=== PATIENT | male | born 1965 | race Caucasian/White ===

== ENCOUNTER 2023-09-04 10:54 | Emergency (ER) | payer OTHER, SELFPAY ==
[2023-09-04 11:08] VITALS: BP 176/100
[2023-09-04 11:24] VITALS: BP 160/103
[2023-09-04 11:26] VITALS: BP 160/103
[2023-09-04 12:00] VITALS: BP 168/93
--- NOTE | 2023-09-04 12:24 | EDRN ---
Pt called out to me in a very loud voice while I was charting on another pt. Pt has been speaking loudly on phone w/ door open. Pt requested to speak to charge nurse about people staring at him. I closed the curtain for his privacy and the door as
he was speaking over phone very loudly then called charge nurse and informed her of his request.
--- NOTE | 2023-09-04 12:26 | EDRN ---
Primo RIVERA just entered pt's room to see him.
[2023-09-04 12:53] LABS: % Basophils 0.4 % (0-2); % Immature Granulocytes 0.5 % (0-0.5); % Lymphocytes 20.3 % (20.5-51.1); % Monocytes 6.3 % (1.7-9.3); % Neutrophils 71.5 % (42.2-75.2); Absolute Eosinophils 0.1 10^3/uL (0-0.7); Absolute Lymphocytes 1.6 10^3/uL (1.2-3.4); Absolute Monocytes 0.5 10^3/uL (0.1-0.6); Absolute Neutrophils 5.7 10^3/uL (1.4-6.5); Hematocrit 40.2 % (39.0-52.0); Hemoglobin 13.9 g/dL (13.0-18.0); Mean Corp Hgb Conc. 34.6 g/dL (33.0-37.0); Mean Corpuscular Hgb 29.3 pg (27.0-31.0); Mean Corpuscular Volume 84.6 fL (80.0-94.0); Mean Platelet Volume 9.8 fL (7.4-10.4); Nucleated Red Blood Cells % 0 % (-); Platelet Count 204 10^3/uL (130-400); Red Blood Cell Count 4.75 10^6/uL (4.70-6.10); Red Cell Dist. Width 13.7 % (11.5-14.5); White Blood Cell Count 7.9 10^3/uL (4.8-10.8)
[2023-09-04 13:00] VITALS: BP 154/86
[2023-09-04 13:05] LABS: ALT (SGPT) 30 U/L (0-50); AST (SGOT) 24 U/L (17-59); Albumin 4.2 g/dl (3.5-5.0); Alkaline Phosphatase 119 U/L (38-126); Blood Urea Nitrogen 21 mg/dl (9-20); Calcium 9.2 mg/dl (8.4-10.2); Carbon Dioxide 31 mmol/L (22-30); Chloride 105 mmol/L (98-107); Glucose 99 mg/dl (70-99); Potassium 3.8 mmol/L (3.5-5.1); Sodium 140 mmol/L (135-145); Total Bilirubin 0.9 mg/dl (0.2-1.3); Total Protein 7.6 g/dl (6.3-8.2); eGFR > 60.00
[2023-09-04 13:34] LABS: Troponin I < 0.012 ng/ml
--- NOTE | 2023-09-04 15:02 | ED.GENMED ---
History of Present Illness
General
Chief Complaint: Headache
Source: patient
Exam Limitations: none
Time Seen by Provider: 09/04/23 11:24
Nursing documentation reviewed up to this point in time: agreed with
Travel History
Have you had any contact with someone who has COVID-19?: No
Do you have any symptoms of coronavirus? Fever > 100 degrees, chills, cough, shortness of breath, sore throat, loss of taste or smell, muscle aches, or headache?: No
History of Present Illness
History of Present Illness:
58-year-old male with no known medical conditions he denies any chronic medical conditions presenting to the emergency department today with concerns of an abnormal EKG that was evaluated in urgent care prior to arrival. He claims that he otherwise
went to the urgent care today because he had some discomfort to his left ear. He was offered antibiotics for an outer ear infection at the urgent care but he declined. He denies any chest pain shortness of breath or any additional symptoms
otherwise
Review of Systems
Review of Systems
Allergies reviewed?: Yes
All Other Systems: ROS reviewed and negative except as documented in HPI and ROS
Phy Exam
Physical Exam
Physical Exam:
GENERAL: Alert , in no apparent distress
EYE: pupils equal and reactive
NECK: Supple, no significant adenopathy.
ENT: o/p clr, mmm.
CARDIAC: Regular rate and rhythm .
LUNGS: Clear breath sounds bilaterally, no acute respiratory distress, no wheezes/rales/rhonchi
ABDOMEN: Soft, without focal tenderness, no r/g, no cvat
NEUROLOGICAL: Alert and oriented, no focal neuro deficits
SKIN: Warm and dry, skin intact.
MUSCULOSKELETAL: No edema, well perfused.
PSYCH: Normal and appropriate interaction.
Course
Orders/Labs/Results
Orders:
Orders
09/04/23 11:17
EKG [Electrocardiogram (*1)] Urgent
Reason for Study: Abnormal EKG
EKG- Treatment ONCE
09/04/23 12:44
Complete Blood Count/With Diff Urgent
Comprehensive Metabolic Panel Urgent
Troponin I Urgent
Abnormal Lab Results
09/04/23
12:44
Lymphocytes % 20.3 L %
(20.5-51.1)
Carbon Dioxide 31 H mmol/L
(22-30)
BUN 21 H mg/dl
(9-20)
09/04/23 12:44
09/04/23 12:44
Vital Signs
Initial and Last Documented VS:
Initial Vital Signs
Temp Pulse Resp BP Pulse Ox
99.4 F 77 18 176/100 95
09/04/23 11:08 09/04/23 11:08 09/04/23 11:08 09/04/23 11:08 09/04/23 11:08
Last Documented Vital Signs
Temp Pulse Resp BP Pulse Ox
99.4 F 76 20 154/86 98
09/04/23 11:08 09/04/23 13:45 09/04/23 13:45 09/04/23 13:00 09/04/23 13:45
MDM/Problems Addressed
MDM/Problems Addressed:
58-year-old male presenting to the emergency department today after he was told he had an abnormal EKG at an urgent care prior to arrival. EKG was reviewed from the urgent care there was 1 PVC but no signs of ischemia or arrhythmia. EKG was
repeated here and normal considering their concern troponin was obtained and negative. He had no chest pain or shortness of breath at any point labs unremarkable here had some mild inflammation to the ear canal he was offered antibiotic drops but
he declined. He claims that a follow-up with his primary care doctor he was given information for cardiology follow-up as well. Return precautions were given.
*Critical Care Note
Total Time (30-74mins, 75-104mins- exclusive of procedures): Not Applicable
ED Attending Note
-
Portions of this chart may have been created with voice recognition software.� Occasional wrong word or��sound alike� substitutions may have occurred due to the inherent limitations of voice recognition software.
Discharge Plan
Departure
Patient Disposition: Home (Routine Discharge)
Date of Disposition: 09/04/23
Time of Disposition: 15:02
Patient with high blood pressure during this ER visit?: No
Condition: Good
Covid-19: Not Applicable
Discharge Problem:
Abnormal ECG
Instructions: BLOOD PRESSURE
Referrals:
Maurice Zaman MD [Active] - Follow up in 10 days
Andreas Spicer DO [Family Provider] -
Activity Restrictions/Additional Instructions:
You were sent to the emergency department with concerns of an abnormal EKG. Here your EKG was normal and your troponin negative. Please follow closely as an outpatient. Return to the emergency department any worsening, new or concerning symptoms.
Interventions
Interventions:
*Risk Screen - Suicide Last Done: 09/04/23 11:08
*General Assessment Last Done: 09/04/23 11:08
*Neglect/Abuse Screening Last Done: 09/04/23 11:08
ED- Fall Risk Assessment Last Done: 09/04/23 11:34
*ED COVID-19 Vaccine History Last Done: 09/04/23 11:08
*Nursing Disposition Last Done: 09/04/23 15:15
ED- Neurological Assessment Last Done: 09/04/23 11:34
Discharge Date and Time
Discharge Date/Time: 09/04/23 15:15
== END 2023-09-04 15:15 | disposition home or self-care (01) ==
LOC: EMR 10:54
PROVIDERS: Physician Assistant; EMERGENCY PHYSICIAN Emergency Medicine; FAMILY PHYSICIAN Family Medicine
DX: R94.31 Abnormal electrocardiogram [ECG] [EKG] (principal); R51.9 Headache, unspecified
CPT/HCPCS: 99283; 80053; 84484; 85025; 93005